=== PATIENT | male | born 1975 | race Caucasian/White ===

== ENCOUNTER 2018-05-21 15:32 | Emergency (ER) | payer OTHER ==
[~2018-05-21] VITALS: Ht 175.3 cm; Wt 59.0 kg
--- NOTE | 2018-05-21 16:04 | ED Dyspnea ---
General Chief Complaint: Dizziness/Syncope Stated Complaint: LIGHT HEADED Source of Information: Patient, Police Exam Limitations: No Limitations History of Present Illness Date Seen by Provider: May 21, 2018 Time Seen by Provider: 16:00 Initial Comments This 42-year-old white male presents with the police with a complaint of feeling lightheaded. After the patient was arrested today and upon arrival at the police station he began feeling very anxious and complained of being short of breath. Patient has had numbness in his extremities. The patient denies chest pain, headache stiff neck or photophobia, chest pain, palpitations, nausea vomiting or diarrhea. Past medical history includes multiple previous pneumothoraces. The patient smokes drinks and uses drugs. Prior to his being arrested today the patient felt fine. Allergies and Home Medications Allergies Coded Allergies: No Known Drug Allergies (Unverified , 05/21/18) Patient Home Medication List Home Medication List Reviewed: Yes Review of Systems Review of Systems Constitutional: No chills, No diaphoresis EENTM: No hearing loss Respiratory: No cough; short of breath Cardiovascular: No chest pain, No palpitations Gastrointestinal: No abdominal pain, No nausea, No vomiting Genitourinary: no symptoms reported Musculoskeletal: no symptoms reported Skin: No no symptoms reported Psychiatric/Neurological: Anxiety, Paresthesia (and extremities) Endocrine: No Symptoms Reported Hematologic/Lymphatic: No Symptoms Reported Past [id number]-[id number] Hx Past Med/Social Hx: Reviewed Nursing Past Med/Soc Hx Patient Social History Alcohol Use: Denies Use Recreational Drug Use: No Smoking Status: Current Everyday Smoker Type Used: Cigarettes 2nd Hand Smoke Exposure: Yes Recent Foreign Travel: No Contact w/Someone Who Travel: No Recent Hopitalizations: No Physical Abuse: No Sexual Abuse: No Mistreated: No Fear: No Seasonal Allergies Seasonal Allergies: No Past Medical History Surgeries: No Respiratory: Yes (18 pneumo since 2007) Emphysema Cardiac: No Neurological: No Genitourinary: No Gastrointestinal: No Musculoskeletal: No Endocrine: No HEENT: No Cancer: No Psychosocial: No Integumentary: No Blood Disorders: No Physical Exam Vital Signs Capillary Refill : Height, Weight, BMI Height: '" Weight: lbs. oz. kg; BMI Method: General Appearance: WD/WN, Anxious HEENT: Normal ENT Inspection Neck: Normal Inspection Respiratory: Lungs Clear, Normal Breath Sounds Cardiovascular: Regular Rate, Rhythm, No Murmur Gastrointestinal: Normal Bowel Sounds Rectal: Normal Exam Extremity: Normal Inspection, Normal Range of Motion Neurologic/Psychiatric: No Motor/Sensory Deficits Skin: Normal Color, Warm/Dry Progress/Results/Core Measures Results/Orders Lab Results Laboratory Tests Test 05/21/18 16:10 Range/Units White Blood Count 10.4 4.3-11.0 10^3/uL Red Blood Count 4.37 4.35-5.85 10^6/uL Hemoglobin 12.9 L 13.3-17.7 G/DL Hematocrit 39 L 40-54 % Mean Corpuscular Volume 88 80-99 FL Mean Corpuscular Hemoglobin 30 25-34 PG Mean Corpuscular Hemoglobin Concent 33 32-36 G/DL Red Cell Distribution Width 12.5 10.0-14.5 % Platelet Count 350 130-400 10^3/uL Mean Platelet Volume 9.3 7.4-10.4 FL Neutrophils (%) (Auto) 66 42-75 % Lymphocytes (%) (Auto) 25 12-44 % Monocytes (%) (Auto) 6 0-12 % Eosinophils (%) (Auto) 1 0-10 % Basophils (%) (Auto) 1 0-10 % Neutrophils # (Auto) 6.9 1.8-7.8 X 10^3 Lymphocytes # (Auto) 2.6 1.0-4.0 X 10^3 Monocytes # (Auto) 0.7 0.0-1.0 X 10^3 Eosinophils # (Auto) 0.1 0.0-0.3 10^3/uL Basophils # (Auto) 0.1 0.0-0.1 10^3/uL Troponin T < 6 <=15 NG/L Lipase 36 8-78 U/L My Orders Orders - GINGER MELGAR MD Chest Pa/Lat (2 View) (05/21/18 15:36) Cbc With Automated Diff (05/21/18 15:36) Ekg Tracing (05/21/18 15:36) Troponin T (05/21/18 15:36) Lipase (05/21/18 16:21) Progress Progress Note : Time: 16:39 Progress Note Patient's chest x-ray demonstrated evidence of previous surgery but no evidence of a pneumothorax or infiltrate. Patient's EKG demonstrated a normal sinus rhythm without any acute current of injury or dysrhythmia. CBC was unremarkable. Troponin is pending. Departure Impression Primary Impression: Anxiety as acute reaction to exceptional stress Disposition: 21 DIS/XFER COURT/[facility] [place] Condition: Unchanged Departure-Patient Inst. Decision time for Depature: 16:46 Referrals: NO,LOCAL PHYSICIAN (PCP) Primary Care Physician Patient Instructions: Anxiety, Adult (DC) Add. Discharge Instructions: Patient may be discharged to the custody of police. I have asked that the patient be returned if any further problems or questions. All discharge instructions reviewed with patient and/or family. Voiced understanding. GINGER MELGAR MD May 21, 2018 16:04
[2018-05-21 16:24] LABS: HEMATOCRIT 39 % (40-54); HEMOGLOBIN 12.9 G/DL (13.3-17.7); MEAN CORPUSCULAR HEMOGLOBIN 30 PG (25-34); MEAN CORPUSCULAR HGB CONC 33 G/DL (32-36); MEAN CORPUSCULAR VOLUME 88 FL (80-99); MEAN PLATELET VOLUME 9.3 FL (7.4-10.4); PLATELET COUNT 350 10^3/uL (130-400); RED CELL DISTRIBUTION WIDTH 12.5 % (10.0-14.5); WHITE BLOOD COUNT 10.4 10^3/uL (4.3-11.0)
[2018-05-21 16:25] LABS: BASOPHILS # (AUTO) 0.1 10^3/uL (0.0-0.1); BASOPHILS % (AUTO) 1 % (0-10); EOSINOPHILS # (AUTO) 0.1 10^3/uL (0.0-0.3); EOSINOPHILS % (AUTO) 1 % (0-10); LYMPHOCYTES # (AUTO) 2.6 X 10^3 (1.0-4.0); LYMPHOCYTES % (AUTO) 25 % (12-44); MONOCYTES # (AUTO) 0.7 X 10^3 (0.0-1.0); MONOCYTES % (AUTO) 6 % (0-12); NEUTROPHILS # (AUTO) 6.9 X 10^3 (1.8-7.8); NEUTROPHILS % (AUTO) 66 % (42-75)
--- NOTE | 2018-05-21 16:35 | Diagnostic Imaging Report ---
PATIENT HISTORY: Abnormal sensation in chest. Tingling. History of lung surgery twice. TECHNIQUE: Two views of the chest were performed. COMPARISON: None. FINDINGS: The lung volumes are large. There is focal scarring and post surgical change in the upper right lung. No focal consolidation is seen. There is no pleural effusion or pneumothorax. The cardiomediastinal silhouette is normal in size and contour. IMPRESSION: Large lung volumes with post surgical changes in the right upper lobe. No focal consolidation is seen. Dictated by: Dictated on workstation # [id number]
[2018-05-21 16:51] VITALS: BP 100/83
== END 2018-05-21 16:51 ==
LOC: ER FS 15:34
DX: J43.9 Emphysema, unspecified (principal); F43.0 Acute stress reaction; F41.9 Anxiety disorder, unspecified; F17.210 Nicotine dependence, cigarettes, uncomplicated; Z87.01 Personal history of pneumonia (recurrent)
CPT/HCPCS: 36415; 71046; 83690; 84484; 85025; 93005